=== PATIENT | female | born 1985 | race Two or more races ===

== ENCOUNTER 2022-04-20 18:27 | Emergency (ER) | payer OTHER ==
[~2022-04-20] VITALS: Ht 165.1 cm; Wt 63.5 kg
--- NOTE | 2022-04-20 18:45 | NUR ---
To ER bed 11, c/o "Pain in rectal area- I think I have a thrombosed hemorrhoid.", hx of hemorrhoid, aaox3, breathing even and non labored, awaiting md paulino
[2022-04-20 18:50] VITALS: BP 149/84
[2022-04-20] MEDS ORDERED: OXYC5TAB3 PO ×2 (19:10→19:11)
--- NOTE | 2022-04-20 19:15 | NUR ---
Patient discharged to home in stable condition. Written and verbal after care instructions given. Patient verbalizes understanding of instruction.
== END 2022-04-20 19:16 | disposition home or self-care (01) ==
LOC: ER 18:42
DX: K64.5 Perianal venous thrombosis (principal); K62.89 Other specified diseases of anus and rectum; Z79.899 Other long term (current) drug therapy